=== PATIENT | male | born 1945 | race Caucasian/White ===

== ENCOUNTER 2016-12-10 13:03 | Emergency (ER) | END 2016-12-10 18:40 | disposition home or self-care (01) | DX: E11.9 Type 2 diabetes mellitus without complications (principal); R35.8 Other polyuria; Z79.84 Long term (current) use of oral hypoglycemic drugs ==

== ENCOUNTER 2017-03-07 14:54 | Emergency (ER) | payer MEDICAID ==
[~2017-03-07] VITALS: Ht 165.1 cm; Wt 79.9 kg
[~2017-03-07 14:54] MED LIST: IBUP-1542 PO; METF500T4 PO
[2017-03-07 14:58] VITALS: Ht 165.1 cm; Wt 79.9 kg
[2017-03-07] MEDS ORDERED: METF500T4 PO ×2 (15:00→15:04)
--- NOTE | 2017-03-07 15:10 | ERD ---
ER Documentation Chief Complaint Date/Time DATE: 03/07/17 TIME: 15:06 Chief Complaint refill od meds for dm HPI This is a 71-year-old male with a recent diagnosis of diabetes type 2 in November presenting to the emergency department for a refill on metformin. Patient states that he was seen here a month ago because he had frequent urination and it has not changed much. He rates it moderate in severity. Patient denies any chest pain, shortness of breath, abdominal pain, diarrhea, vomiting or feeling unwell. He denies any fever. Patient states that he has been compliant with his medications Metformin 500 mg twice daily. Patient is with his daughter and his daughter states that they have been working on finding him the doctor and they will take him to the clinic next week. ROS All systems reviewed and are negative except as per history of present illness. Medications Home Meds Active Scripts Metformin* (Glucophage*) 500 Mg Tab, 1000 MG PO BID, #60 TAB Prov:SARAH FORRESTER PA-C 03/07/17 Metformin* (Glucophage*) 500 Mg Tab, 500 MG PO BID, #60 TAB Prov:LEDA ORTEGA PA-C 12/10/16 Ibuprofen* (Motrin*) 600 Mg Tab, 600 MG PO Q8, #30 TAB Prov:DANYELL JOSHUA 08/21/16 Allergies Allergies: Coded Allergies: No Known Allergy (Unverified , 08/21/16) PMhx/Soc Hx Alcohol Use: Yes Hx Substance Use: No Hx Tobacco Use: No Physical Exam Vitals Vital Signs Date Time Temp Pulse Resp B/P Pulse Ox O2 Delivery O2 Flow Rate FiO2 03/07/17 14:58 98.1 97 18 132/68 99 Physical Exam GENERAL: WD/WN, in no apparent distress, non-toxic appearing HENT: NC/AT EYES: Conjunctiva normal NECK: Supple. No meningeal signs PULM: Clear to auscultation bilaterally. Normal labored breathing CV: Regular rate and rhythm, no murmurs GI: Soft, non tender, non distended. Normal bowel sounds BACK: No masses EXT: No clubbing, cyanosis, or edema. NEURO: Awake and Alert SKIN: No petechiae or rashes PSYCH: Normal mood Procedures/MDM This is a 71-year-old male presenting to the emergency department with a new onset of diabetes type 2 that was placed on metformin 500 mg twice daily asking for a medication refill. Patient states that he still has polyuria, I have discussed this with my supervising physician and we have decided to increase his dose to 1000 mg twice daily until he is able to follow-up with his primary care physician next week. Patient appears well speaking clearly, he has stable vital signs, I have a low suspicion for DKA or hyperosmolar state. Patient is suitable to follow-up with his primary care physician on Friday with precautions to return to the emergency department for any worsening signs or symptoms. Patient and his daughter understand and agree with this plan Departure Diagnosis: Primary Impression: Encounter for medication refill Additional Impression: Diabetes Condition: Stable Patient Instructions: Taking Medicine Safely, What Is Type 2 Diabetes? Additional Instructions: Visite a milady gregory para un EXAMEN.Regrese a estas instalaciones si no se mejora phong esperbamos o phong le dijimos. [place] toda la medicina barbara y phong se le indic. Regrese a estas instalaciones si no se mejora phong esperbamos o phong le dijimos. SARAH FORRESTER PA-C Mar 07, 2017 15:10
== END 2017-03-07 15:06 | disposition home or self-care (01) ==
LOC: E/R 14:54
DX: Z76.0 Encounter for issue of repeat prescription (principal); E11.9 Type 2 diabetes mellitus without complications
CPT/HCPCS: 99283